=== PATIENT | female | born 1985 | race African-American/Black ===

== ENCOUNTER 2017-06-25 20:14 | Emergency (ER) | payer OTHER ==
[~2017-06-25] VITALS: Ht 160 cm; Wt 109.5 kg
[2017-06-25] MEDS ORDERED: KETOROLAC TROMETHAMINE 60 MG/2 ML VIAL IM ONE (21:15)
[2017-06-25] MEDS ORDERED: ACETAMINOPHEN 325 MG TAB PO ONE (21:30)
== END 2017-06-25 21:25 | disposition home or self-care (01) ==
LOC: FSED 20:14
DX: M54.5 Low back pain (principal); R14.0 Abdominal distension (gaseous)
CPT/HCPCS: 80307; 81025; 99283; J1885

== ENCOUNTER 2017-10-30 22:53 | Emergency (ER) | payer OTHER ==
[~2017-10-30] VITALS: Ht 160 cm; Wt 109.3 kg
[2017-10-30] MEDS ORDERED: ONDANSETRON HCL 4 MG ORAL DISINTEGRATING TAB PO ONE (23:15)
[2017-10-30] MEDS ORDERED: ALPRAZOLAM 0.5 MG TAB PO ONE (23:45)
== END 2017-10-31 01:15 | disposition home or self-care (01) ==
LOC: FSED 22:53
DX: F41.1 Generalized anxiety disorder (principal); F17.210 Nicotine dependence, cigarettes, uncomplicated
CPT/HCPCS: 99283